=== PATIENT | female | born 1980 ===

== ENCOUNTER 2019-01-20 10:37 | Outpatient (CLI) | payer BC ==
--- NOTE | 2019-01-20 14:28 | ULT ---
RIGHT BREAST DIAGNOSTIC ULTRASOUND: INDICATION: Right breast mass is seen on a screening evaluation performed at the breast imaging center at [facility]. This screening evaluation was submitted with the request for right breast bricechong shazianidhi. The imaged examination was performed on November 09, 2018. The original screening evaluation wa s recommended by Haile Ward M.D. FINDINGS: Cole scale color Doppler images of the retroareolar region and inner aspect of the right breast demon strate that the central right breast lesion likely corresponds to an enlarged cyst in the 12 o'clock position measuring 1 cm. There is an additional 6 mm cyst seen within the retroareolar right breast 6 o'clock position. There is a 7 x 7 mm cyst within the right breast 9 o'clock position 2 cm from th e nipple. No suspicious sonographic abnormality is evident. IMPRESSION: BIRADS category 2 - benign. The suspected mass lesion seen within the subareolar right breast and ce ntral right breast on the comparison screening evaluation likely corresponds to right breast cysts. Recommend return to screening mammographic evaluation. The patient was counseled on the findings layla or to leaving the breast center. POS: OFF
== END 2019-01-20 10:38 | disposition home or self-care (01) ==
LOC: BICULT 10:37
PROVIDERS: ATTEND Obstetrics & Gynecology
DX: N63.41 Unspecified lump in right breast, subareolar (principal)